=== PATIENT | female | born 1970 | race Caucasian/White ===

== ENCOUNTER 2024-06-22 11:55 | Day surgery (SDC) | payer BC, SELFPAY ==
[2024-06-20 11:14] VITALS: BMI 29.1
[2024-06-22] VITALS (9 sets, daily range): BP systolic 119–157; BP diastolic 75–94; PULSE 85–96; RESP 14–20; TEMP 36.6–36.7; O2SAT 93–98; BMI 29.9
[2024-06-22] MEDS: MIDAZOLAM INJ 1 MG/ML VIAL 2 ML (ASD USE ONLY) 2 MG IV (13:34)
[2024-06-22] MEDS: fentaNYL CIT INJ 50 mCg/ML AMP 2ML (ASD USE ONLY) IV (13:36)
--- NOTE | 2024-06-22 13:50 | SUR.PHASEII ---
PATIENT ARRIVED TO RECOVERY WITH NO ACUTE DISTRESS NEEDED, V/S STABLE, NO COMPLAINTS OF PAIN OR NAUSEA AT THIS TIME. PATIENT ACTIVELY PASSING FLATUS. REPORT RECEIVED FROM YONG CAMERON.
== END 2024-06-22 14:45 | disposition home or self-care (01) ==
PROVIDERS: PCP Family Medicine; Referring Provider Surgery; Visit Provider Surgery
PROC: 0DBE8ZX Excision of Large Intestine, Via Natural or Artificial Opening Endoscopic, Diagnostic (ICD-10-PCS; CPT 45380; principal; 2024-06-22 14:30)
DX: Z12.11 Encounter for screening for malignant neoplasm of colon (principal)
CPT/HCPCS: 45330; A4217; J2250; J3010

== ENCOUNTER 2024-06-23 13:15 | Day surgery (SDC) | payer BC, SELFPAY ==
[2024-06-23] VITALS (10 sets, daily range): BP systolic 111–181; BP diastolic 69–116; PULSE 75–93; RESP 13–20; TEMP 36.6; O2SAT 93–96; BMI 30.1
[2024-06-23] MEDS: fentaNYL CIT INJ 50 mCg/ML AMP 2ML (ASD USE ONLY) IV (15:17)
[2024-06-23] MEDS: DiphenhydrAMINE INJ 50 MG/ML VIAL 25 MG IV (15:22)
[2024-06-23] MEDS: MIDAZOLAM INJ 1 MG/ML VIAL 2 ML (ASD USE ONLY) 2 MG IV (15:24)
--- NOTE | 2024-06-23 15:37 | SUR.PHASEII ---
PATIENT INTO RECOVERY WITH NO ACUTE DISTRESS NEEDED, V/S STABLE, NO COMPLAINTS OF PAIN OR NAUSEA AT THIS TIME. PATIENT ACTIVELY PASSING FLATUS.
== END 2024-06-23 16:20 | disposition home or self-care (01) ==
PROVIDERS: PCP Family Medicine; Referring Provider Surgery; Visit Provider Surgery
PROC: 0DBE8ZX Excision of Large Intestine, Via Natural or Artificial Opening Endoscopic, Diagnostic (ICD-10-PCS; CPT 45380; principal; 2024-06-23 15:00)
DX: Z12.11 Encounter for screening for malignant neoplasm of colon (principal)
CPT/HCPCS: 45378; A4217; J1200; J2250; J3010

== ENCOUNTER → 2024-08-16 | Outpatient (CLI) | payer BC, SELFPAY ==
[2024-08-16 08:33] LABS: Basophils # (Auto) 0.1 Thou/mm3 (0.0-0.2); Basophils % (Auto) 1 % (0-2.5); Eosinophils # (Auto) 0.1 Thou/mm3 (0.0-0.5); Eosinophils % (Auto) 2 % (0-10); Glucose Estimated Average 137 mg/dL (80-131); Hematocrit 41.3 % (36.0-46.0); Hemoglobin 14.7 g/dL (12.0-16.0); Hemoglobin A1C 6.4 % Hgb (4.8-6.0); Immature Granulocytes % (Auto) 0 % (0-0); Immature Granulocytes Auto 0.01 Thou/mm3 (0.00-0.00); Lymphocytes # (Auto) 3.2 Thou/mm3 (1.0-4.8); Lymphocytes % (Auto) 47 % (10-50); Mean Corpuscular HGB Conc 35.6 g/dl (31.0-37.0); Mean Corpuscular Hemoglobin 30.4 pg (25.0-35.0); Mean Corpuscular Volume 85 fL (80-100); Monocytes # (Auto) 0.4 Thou/mm3 (0.0-0.8); Monocytes % (Auto) 5 % (0-12); Neutrophils % (Auto) 45 % (37-80); Nucleated Red Blood Cell % 0 /100 WBC (0); Platelet Count 232 Thou/mm3 (140-440); Red Blood Count 4.84 Miln/mm3 (4.00-5.20); White Blood Count 6.8 Thou/mm3 (3.6-11.0)
[2024-08-16 08:56] LABS: Alanine Aminotransferase 17 U/L (10-49); Albumin, Serum 4.4 gm/dL (3.5-5.0); Albumin/Globulin Ratio 1.6 (1.2-2.2); Anion Gap 8 (7-16); Aspartate Amino Transferase < 8 U/L (0-34); BUN/Creatinine Ratio 31 Ratio (12-20); Bilirubin,Total 0.5 mg/dL (0.3-1.2); Blood Urea Nitrogen 22 mg/dL (9-23); Calcium 9.8 mg/dL (8.3-10.6); Calcium (Corrected) 9.8 mg/dL (8.5-10.1); Carbon Dioxide 26.2 mMol/L (20.0-31.0); Cardiac Risk Estimate 4.6 RATIO (3.7-5.6); Chloride 105 mMol/L (98-107); Cholesterol 206 mg/dL (132-200); Creatinine (Component) 0.7 mg/dL (0.6-1.3); Globulin 2.7 gm/dL (2.3-3.5); Glucose 153 mg/dL (74-106); HDL Cholesterol 45 mg/dL (40-60); LDL Cholesterol,Calculated 135 mg/dL (0-130); Osmolality,Calculated 283 (275-295); Potassium 4.6 mMol/L (3.4-5.1); Sodium 139 mMol/L (136-145); Total Protein 7.1 gm/dL (5.7-8.2); Triglycerides 129 mg/dL (30-150); eGFR > 60 See Note
[2024-08-16 09:15] LABS: Alkaline Phosphatase 75 U/L (46-116)
== END | disposition home or self-care (01) ==
LOC: COPL 07:37
PROVIDERS: PCP Family Medicine; Referring Provider Family Medicine; Visit Provider Family Medicine
DX: E11.65 Type 2 diabetes mellitus with hyperglycemia (principal); E11.42 Type 2 diabetes mellitus with diabetic polyneuropathy; G90.09 Other idiopathic peripheral autonomic neuropathy; R79.9 Abnormal finding of blood chemistry, unspecified; R25.2 Cramp and spasm
CPT/HCPCS: 36415; 80053; 80061; 83036; 85025

== ENCOUNTER 2025-02-20 11:46 | Inpatient (IN) | payer BC, SELFPAY ==
[2025-02-20] VITALS (12 sets, daily range): BP systolic 98–158; BP diastolic 32–76; PULSE 102–140; RESP 14–18; TEMP 36.9–40.2; O2SAT 94–99; BMI 31.5
--- NOTE | 2025-02-20 12:31 | XR_ITS ---
Examination: PA lateral chest 2 views TECHNIQUE: Upright PA lateral chest 2 views Date and time: February 20, 2025 1317 hours INDICATIONS: History Covid infections coughing fever 5 days. FINDINGS: Normal heart size. Lungs are clear. The osseous structures are intact IMPRESSION: No active disease
--- NOTE | 2025-02-20 12:32 | PD.EDFEVER ---
ED Fever RME/HPI General Chief Complaint: Fever Stated Complaint: CHILLS, FEVER, N/V X 5 DAYS Time Seen by Provider: 02/20/25 12:26 Source: patient Arrival date/time: 02/20/25 11:46 54-year-old female with no known medical history presents to the emergency room with a chief complaint of fever, nausea, vomiting, body aches x 5 days Mode of arrival: ambulatory Limitations: no limitations Related Data Home Medications ?Medication ?Instructions ?Recorded ?Confirmed semaglutide 2 mg/dose (8 mg/3 mL) 2 mg subcut QWEEK 06/20/24 06/23/24 subcutaneous pen injector (Ozempic) Allergies Allergy/AdvReac Type Severity Reaction Status Date / Time bacitracin Allergy Intermediate Rash Verified 02/20/25 11:50 neomycin Allergy Intermediate Rash Verified 02/20/25 11:50 polymyxin B Allergy Intermediate Rash Verified 02/20/25 11:50 Physical Exam General Limitations: no limitations ED Exam General Limitations: Present no limitations Course Orders Category Date Time Status Bedside COVID-19 Antigen Test NOW Care 02/20/25 12:31 Active Bedside Influenza A&B Antigen Test NOW Care 02/20/25 12:31 Active XR chest 2V Stat Exams 02/20/25 12:31 Ordered Acetaminophen Tab [Tylenol Tab] Med 02/20/25 12:31 Once 650 mg PO X1 ONE Ondansetron Odt [Zofran Odt] Med 02/20/25 12:31 Once 4 mg PO X1 ONE Discharge Plan Prescriptions/Referrals Prescriptions/Med Rec: No Action Ozempic 2 mg/dose (8 mg/3 mL) pen injector 2 mg SUBCUT QWEEK Patient Comments: INJECT 2 MG SUBCUTANEOUSLY EVERY WEEK SUBCUTANEOUS WEEKLY 90 DAYS Patient/Caregiver Discharge Instructions Print Language: American
[2025-02-20] MEDS: ACETAMINOPHEN 325 MG TABLET 650 MG PO ×2 (12:38→19:02)
[2025-02-20] MEDS: ONDANSETRON ODT 4 MG TABRAP PO (12:38)
--- NOTE | 2025-02-20 14:58 | EKG_ITS ---
[facility] Test Date: 2025-02-20 Pat Name: ERIKA CLEARY Department: Room: - Gender: Female Photograph Retoucher: : 1970 Requested By: Lit Pichardo Order Number: [id number] Reading MD: Lit Pichardo Measurements Intervals [place] Rate: 105 P: 42 NV: 165 QRS: -7 QRSD: 100 T: 57 QT: 292 QTc: 386 Interpretive Statements SINUS TACHYCARDIA NONSPECIFIC ST & T-WAVE ABNORMALITY ABNORMAL RHYTHM ECG Compared to ECG 11/16/2019 07:51:11 T-wave abnormality now present Sinus rhythm no longer present /store/S0/[id number].pdf
--- NOTE | 2025-02-20 14:59 | PD.EDRME ---
Rapid Medical Screening Exam RME Arrival date/time: 02/20/25 11:46 54-year-old female with no known medical history presents to the emergency room with a chief complaint of fever, nausea, vomiting, body aches x 5 days I have greeted and performed a focused initial assessment of this patient. A comprehensive ED assessment and evaluation of the patient, analysis of all test results, and completion of the medical decision making process will be conducted by additional ED providers. Chief Complaint: Fever Time Seen by Provider: 02/20/25 12:26 Vital signs: Vital Signs Temperature 102.2 F H 02/20/25 12:33 Pulse Rate 110 H 02/20/25 12:33 Respiratory Rate 18 02/20/25 12:33 Blood Pressure 116/76 02/20/25 12:33 Pulse Oximetry (%) 98 02/20/25 12:33 Oxygen Delivery Method Room Air 02/20/25 12:33 Vital signs reviewed by provider: Yes
[2025-02-20 15:44] LABS: Lactate (Lactic Acid) 1.6 mMol/L (0.4-2.0)
[2025-02-20 15:46] LABS: Basophils # (Auto) 0.1 Thou/mm3 (0.0-0.2); Basophils % (Auto) 1 % (0-2.5); Eosinophils # (Auto) 0.1 Thou/mm3 (0.0-0.5); Eosinophils % (Auto) 1 % (0-10); Hematocrit 37.4 % (36.0-46.0); Hemoglobin 13.1 g/dL (12.0-16.0); Immature Granulocytes Auto 0.04 Thou/mm3 (0.00-0.00); Lymphocytes # (Auto) 1.4 Thou/mm3 (1.0-4.8); Lymphocytes % (Auto) 13 % (10-50); Mean Corpuscular HGB Conc 35.0 g/dl (31.0-37.0); Mean Corpuscular Hemoglobin 30.3 pg (25.0-35.0); Mean Corpuscular Volume 87 fL (80-100); Monocytes # (Auto) 0.9 Thou/mm3 (0.0-0.8); Monocytes % (Auto) 9 % (0-12); Neutrophils # (Auto) 7.8 Thou/mm3 (1.8-7.7); Neutrophils % (Auto) 76 % (37-80); Nucleated Red Blood Cell # 0.00 Thou/mm3 (0.00-0.00); Nucleated Red Blood Cell % 0 /100 WBC (0); Platelet Count 159 Thou/mm3 (140-440); RDW Standard Deviation 37.4 fL (36.4-46.3); Red Blood Count 4.32 Miln/mm3 (4.00-5.20); White Blood Count 10.3 Thou/mm3 (3.6-11.0)
--- NOTE | 2025-02-20 16:01 | PD.EDFEVER ---
ED Fever RME/HPI General Chief Complaint: Fever Stated Complaint: CHILLS, FEVER, N/V X 5 DAYS Time Seen by Provider: 02/20/25 12:26 Arrival date/time: 02/20/25 11:46 RME / HPI RME / HPI Narrative: 02/20/25 11:46 54-year-old female with no known medical history presents to the emergency room with a chief complaint of fever, nausea, vomiting, body aches x 5 days I have greeted and performed a focused initial assessment of this patient. A comprehensive ED assessment and evaluation of the patient, analysis of all test results, and completion of the medical decision making process will be conducted by additional ED providers. DR. RIVAS MAIN ED EVALUATION 54 year old female with history of diabetes presents to the ED for evaluation of malaise beginning 4 days ago. Reports symptoms include fevers (Tmax 104F), chills, body aches, headache, nausea, and heart burn sensation. Reports taking Motrin and both DayQuil/NyQuil with minimal relief. States she took an at-home covid test which was negative. Denies any diarrhea, abdominal pain, or dysuria. Though does report her urine is slightly darker than normal. Related Data Home Medications ?Medication ?Instructions ?Recorded ?Confirmed semaglutide 2 mg/dose (8 mg/3 mL) 2 mg subcut QWEEK 06/20/24 06/23/24 subcutaneous pen injector (Ozempic) Previous Rx's ?Medication ?Instructions ?Recorded acetaminophen 325 mg capsule 650 mg (2 x 325 mg) PO QID PRN 02/20/25 fever or pain 7 days #30 caps albuterol sulfate 90 mcg/actuation 2 puff inhalation Q6H PRN 02/20/25 aerosol inhaler (Ventolin HFA) shortness of breath or wheezing #6.7 grams ondansetron 4 mg disintegrating 4 mg PO Q8H PRN nausea and 02/20/25 tablet vomiting #14 tabs Allergies Allergy/AdvReac Type Severity Reaction Status Date / Time bacitracin Allergy Intermediate Rash Verified 02/20/25 11:50 neomycin Allergy Intermediate Rash Verified 02/20/25 11:50 polymyxin B Allergy Intermediate Rash Verified 02/20/25 11:50 Review of Systems Review of Systems Systems Reviewed: All systems reviewed, normal except as documented Past Medical History Past Medical History GASTROINTESTINAL: Positive Gastrointestinal Disorders and Gall Bladder Disease (resolved) REPRODUCTIVE: Positive Previous Pregnancies ENDOCRINE: Positive Endocrine Disorders and Diabetes Mellitus Type 2 OTHER HISTORY: Positive Chicken Pox Family History FAMILY HISTORY: Positive Family Cardiac Disorders (BROTHER (CVA?)), Family Cancer and Family Surgery Surgical History SURGICAL: Positive Open Reduction Internal Fixation, Tubal Ligation and Section (x2); Negative Cardiac Surgery or Pacemaker Social History SMOKING STATUS: Never smoker Physical Exam Narrative Physical exam: GENERAL APPEARANCE: alert and oriented x 4, well-developed, well-nourished, no acute distress HEENT: Normocephalic, atraumatic; pupils equal, round, reactive to light; EOMI; mucous membranes pink, moist; oropharynx clear NECK: Supple LUNGS: CTABL; no wheezes, no rales, no rhonchi HEART: Regular rate, regular rhythm; normal S1, S2; no murmurs ABDOMEN: non distended; normal BS; soft, no tenderness, no guarding, no rebound; no masses, no organomegaly, no hernia BACK: no CVA tenderness EXTREMITIES: atraumatic; no edema NEUROLOGIC: awake; alert and oriented x4; cranial nerves II-XII grossly intact; no focal sensory or motor deficits PSYCHIATRIC: appropriate mood and affect SKIN: warm, dry, normal color; no rashes Course Quality Measures none Orders Category Date Time Status Bedside COVID-19 Antigen Test NOW Care 02/20/25 12:31 Active Bedside Influenza A&B Antigen Test NOW Care 02/20/25 12:31 Completed EKG (ED ONLY) *Do not use* NOW Care 02/20/25 14:59 Completed EKG (ED Only) Stat Exams 02/20/25 14:58 Draft XR chest 2V Stat Exams 02/20/25 12:31 Completed B-Type Natriuretic Peptide Stat Lab 02/20/25 15:32 Completed Blood Culture (Lab) Stat Lab 02/20/25 15:27 Received CBC Stat Lab 02/20/25 15:32 Completed CMP [Comprehensive Metabolic Panel] Stat Lab 02/20/25 15:32 Completed Drug Screen,Urine Stat Lab 02/20/25 16:04 Completed Lactate (Lactic Acid) Stat Lab 02/20/25 15:32 Completed Magnesium Stat Lab 02/20/25 15:32 Completed Partial Thromboplastin Time Stat Lab 02/20/25 15:32 Completed Procalcitonin Stat Lab 02/20/25 15:32 Completed Prothrombin Time with INR Stat Lab 02/20/25 15:32 Completed Troponin I Stat Lab 02/20/25 15:32 Completed Urinalysis, C/S if Indicated Stat Lab 02/20/25 16:04 Completed Urine Culture Stat Lab 02/20/25 16:04 Received Acetaminophen Tab [Tylenol Tab] Med 02/20/25 12:31 Discontinued 650 mg PO X1 ONE Ondansetron Odt [Zofran Odt] Med 02/20/25 12:31 Discontinued 4 mg PO X1 ONE Sodium Chloride 0.9% 1000 ml [Ns] 1,000 ml Med 02/20/25 16:50 Discontinued IV 999 mls/hr Sodium Chloride 0.9% 1000 ml [Ns] 1,000 ml Med 02/20/25 17:10 Active IV 999 mls/hr cefTRIAXone/D5w 1gm IV premix [Rocephin/D5w 1gm IV Med 02/20/25 16:49 Discontinued premix] 1 gm in 50 ml IV X1 mg Hyd/Al Hyd/Edgardo Susp [Maalox Susp] Med 02/20/25 16:22 Discontinued 30 ml PO X1 ONE Vital Signs Vital signs: Vital Signs Temperature 102.2 F H 02/20/25 12:33 Pulse Rate 110 H 02/20/25 12:33 Respiratory Rate 18 02/20/25 12:33 Blood Pressure 116/76 02/20/25 12:33 Pulse Oximetry (%) 98 02/20/25 12:33 Oxygen Delivery Method Room Air 02/20/25 12:33 Pulse ox is 98% on room air which is adequate. Fever MDM Narrative MDM Narrative:: Kianna Dexter am scribing for and in the presence of Dr. Rivas. We reviewed all the results, analysis, and treatment plans. Patient has a UTI and there are no previous urine culture results. 1800: Patient signed out to Dr. Spivey pending IV fluids, medications, and final disposition. Patient data External records reviewed:: [facility] previous records (I reviewed H&P on 06/23/2024 ) Clinical information provided by:: patient Social determinants that could affect healthcare access:: none Patient has the following chronic illnesses:: DM How is presenting disease/condition affected by chronic disease/condition?: uneffected by Evaluation data The following diagnostics were reviewed and interpreted by me:: lab results, radiology exam(s) and EKG tracing(s) (02/20/2025 @ 16:00. Sinus tachycardia, rate 105, no acute ischemic changes. ) Lab and/or radiology exams considered but not ordered:: None Interpretation Summary: Ordering Physician: Lit Tom Date of Service: 02/20/25 Procedure(s): XR chest 2V Accession Number(s): [id number] cc: Lit Tom; David Noel MD; Leticia Logan MD~ Examination: PA lateral chest 2 views TECHNIQUE: Upright PA lateral chest 2 views Date and time: February 20, 2025 1317 hours INDICATIONS: History Covid infections coughing fever 5 days. FINDINGS: Normal heart size. Lungs are clear. The osseous structures are intact IMPRESSION: No active disease Dictated By: David Noel MD Signed By: <Electronically signed by David Noel MD in OV> 02/20/25 1327 Medications / Prescriptions Medications or Prescriptions considered but not ordered:: none Medication administrations:: Medication Administration History Sodium Chloride (Ns) 1,000 mls @ 999 mls/hr IV .Q1H1M ONE Stop: 02/20/25 18:10 Last Admin: 02/20/25 17:41 Dose: 999 mls/hr Documented By: HUMZA Discontinued Medications Acetaminophen (Acetaminophen 325 Mg Tablet) 650 mg PO X1 ONE Stop: 02/20/25 12:32 Last Admin: 02/20/25 12:38 Dose: 650 mg Documented By: OA Al Hydrox/Mg Hydrox/Simethicone (Mg Hyd/Al Hyd/Edgardo (Maalox Reg) Susp 30 Ml Udc) 30 ml PO X1 ONE Stop: 02/20/25 16:23 Last Admin: 02/20/25 16:31 Dose: 30 ml Documented By: HUMZA Ceftriaxone Sodium/Dextrose (Rocephin/D5w 1gm Iv Premix) 1 gm in 50 mls @ 100 mls/hr IV X1 ONE Stop: 02/20/25 17:18 Last Admin: 02/20/25 17:47 Dose: 100 mls/hr Documented By: HUMZA Sodium Chloride (Ns) 1,000 mls @ 999 mls/hr IV .Q1H1M ONE Stop: 02/20/25 17:50 Last Admin: 02/20/25 17:39 Dose: 999 mls/hr Documented By: HUMZA Ondansetron HCl (Ondansetron Odt 4 Mg Tabrap) 4 mg PO X1 ONE; Protocol Stop: 02/20/25 12:32 Last Admin: 02/20/25 12:38 Dose: 4 mg Documented By: OA See above Consultations Consultation(s) initiated? (list below): No Diagnosis Fever Differential Diagnosis: fever of unknown origin, community acquired pneumonia, pyelonephritis, viral infection, sepsis and influenza Most likely diagnosis given after review of the tests above:: UTI Admission Indicated Admission indicated?: not indicated Explain why admission is indicated or not indicated:: Signed out pending final disposition. Admission Request Was there a request for admission?: No Disposition Plan Disposition Plan: other (specify) (signed out to Dr. Spivey ) Discharge Plan Plan Discharge Disposition comment: Stable Prescriptions/Referrals Prescriptions/Med Rec: New albuterol sulfate [Ventolin HFA] 90 mcg/actuation HFA aerosol inhaler 2 puff inhalation Q6H PRN (Reason: shortness of breath or wheezing) Qty: 6.7 0RF acetaminophen 325 mg capsule 650 mg PO QID PRN (Reason: fever or pain) 7 Days Qty: 30 0RF ondansetron 4 mg tablet,disintegrating 4 mg PO Q8H PRN (Reason: nausea and vomiting) Qty: 14 0RF No Action Ozempic 2 mg/dose (8 mg/3 mL) pen injector 2 mg SUBCUT QWEEK Patient Comments: INJECT 2 MG SUBCUTANEOUSLY EVERY WEEK SUBCUTANEOUS WEEKLY 90 DAYS Referrals: Leticia Logan MD [Primary Care Provider] - In 1 week Problem List Clinical Impression: UTI (urinary tract infection), Fever, Acute kidney injury Patient/Caregiver Discharge Instructions Additional Instructions: Please follow-up with your primary care provider in the next 24 to 48 hours. You tested negative for influenza COVID-19 and community-acquired pneumonia. The treatment for this is symptom management. Please continue to take Tylenol and ibuprofen for fever management. Please increase your oral fluid intake. For any evidence of worsening signs or symptoms please return to the emergency room immediately Print Language: [place] Islander RAY/BIJU Supervising Physician PA/BIJU Supervising Physician: Dr. RIVAS
[2025-02-20 16:06] LABS: B-Type Natriuretic Peptide < 20 pg/mL (0-100)
[2025-02-20 16:11] LABS: INR 1.2 (0.9-1.3); Partial Thromboplastin Time 31.2 Seconds (22.0-36.0); Prothrombin Time 12.6 Seconds (9.0-12.2)
[2025-02-20 16:13] LABS: Collection Type, Urine Clean Catch
[2025-02-20 16:15] LABS: Alanine Aminotransferase 42 U/L (10-49); Albumin, Serum 3.8 gm/dL (3.5-5.0); Albumin/Globulin Ratio 1.3 (1.2-2.2); Alkaline Phosphatase 115 U/L (46-116); Anion Gap 11 (7-16); Aspartate Amino Transferase 23 U/L (0-34); BUN/Creatinine Ratio 10 Ratio (12-20); Bilirubin,Total 1.2 mg/dL (0.3-1.2); Blood Urea Nitrogen 14 mg/dL (9-23); Calcium 9.7 mg/dL (8.3-10.6); Calcium (Corrected) 9.9 mg/dL (8.5-10.1); Carbon Dioxide 23.8 mMol/L (20.0-31.0); Chloride 101 mMol/L (98-107); Creatinine (Component) 1.4 mg/dL (0.6-1.3); Globulin 2.9 gm/dL (2.3-3.5); Glucose 277 mg/dL (74-106); Magnesium 1.6 mg/dL (1.6-2.6); Osmolality,Calculated 282 (275-295); Potassium 3.4 mMol/L (3.4-5.1); Procalcitonin 1.71 ng/ml (0.0-0.49); Sodium 136 mMol/L (136-145); Total Protein 6.7 gm/dL (5.7-8.2); Troponin I < 0.002 ng/mL (0.0-0.045); eGFR 44 See Note
[2025-02-20 16:22] LABS: Amphetamine/Methamp Scrn,U Negative (Negative); Barbiturate Screen,Urine Negative (Negative); Benzodiazepines Screen,Urine Negative (Negative); Benzoylecgonine Screen, Ur Negative (Negative); Fentanyl Screen,Urine Negative (Negative); Opiate Screen,Urine Negative (Negative); THC Screen,Urine Negative (Negative)
[2025-02-20 16:31] LABS: Bacteria,Urine 1+; Bilirubin,Urine Negative (Negative); Blood,Urine 1+ (Negative); Color,Urine Yellow (Lt Yel-Yel); Glucose, Urine Negative (Negative); Ketones,Urine 1+ (Negative); Leukocyte Esterase,Urine Positive (Negative); Nitrite,Urine Negative (Negative); PH,Urine 6.0 (5.0-7.0); Protein,Urine 2+ (Neg - Trace); RBC,Urine 4 /hpf (0-3); Specific Gravity,Urine 1.021 (1.001-1.035); Squamous Epithelial Cell,Urine 1 /hpf (0-5); Urobilinogen,Urine Negative mg/dL (0.0-1.0); WBC,Urine 67 /hpf (0-5)
[2025-02-20] MEDS: MG HYD/AL HYD/SIME (Maalox Reg) SUSP 30 ML UDC PO (16:31)
[2025-02-20 16:34] LABS: Clarity,Urine Hazy (Clear/Hazy); Culture Indicated,Urine Yes
[2025-02-20] MEDS: SODIUM CHLORIDE 0.9% 1000 ML 1,000 ML 999 ML IV ×2 (17:39→17:41)
[2025-02-20] MEDS: cefTRIAXone/D5w 1gm IV premix 1 GM/50 ML BAG IV (17:47)
--- NOTE | 2025-02-20 18:23 | PD.EDADDENDU ---
Emergency Room Addendum <Izzy Luz - Last Filed: 02/21/25 00:55> Addendum Narrative: I took over the care from Dr. Rivas at 6 PM on 02/20/2025, see her notes for complete H&P and ED course. I reviewed all diagnostic test results. At this point, diagnoses include: 1. UTI 2. ABDIAZIZ Treatment from [place] included: 1. Toradol 2. Tylenol 3. IV fluid 4. Zofran I discussed the case with our hospitalist. About the presentation and exam and diagnostics and treatments here. And need of further care in the hospital. Will accept the patient. Naseem Spivey MD <Naseem Spivey MD - Last Filed: 02/21/25 01:23> Addendum Narrative: I took over the care from Dr. Rivas at 6 PM on 02/20/2025, see her notes for complete H&P and ED course. I reviewed all diagnostic test results. At this point, diagnoses include: Sepsis UTI ABDIAZIZ Hypokalemia Treatment from [place] included: IV fluid and Zofran Rocephin Tylenol and Toradol Oral KCl 40 mEq No significant improvement noted. I discussed the case with our hospitalist. About the presentation and exam and diagnostics and treatments here. And need of further care in the hospital. Will accept the patient. Naseem Spivey MD
[2025-02-20] MEDS: POTASSIUM CHLORIDE 10% 20 MEQ/15 ML UDC 40 MEQ PO (19:04)
[2025-02-20] MEDS: KETOROLAC INJ 30 MG/ML VIAL IVP (19:05)
[2025-02-20] MEDS: ONDANSETRON INJ 2 MG/ML INJ 2 ML 4 MG IVP (19:11)
[2025-02-20] MEDS: RINGERS LACTATED 1000 ML 1,000 ML IV (19:31)
[2025-02-20] MEDS: ACETAMINOPHEN IVPB 1,000 MG/100 ML VIAL 250 MG IV (19:33)
[2025-02-20] MEDS: IBUPROFEN TAB 400 MG TABLET 800 MG PO (21:20)
[2025-02-20] MEDS: RINGERS LACTATED 1000 ML 1,000 ML 999 ML IV (21:21)
--- NOTE | 2025-02-20 21:32 | PD.RESHP ---
Documentation for date of: 02/20/25 HPI History of Present Illness Chief complaint: fever, chills, N/V History of present illness: Ms Raymond is a 54 year old patient past medical history of type 2 diabetes mellitus and HLD presented to the ED on 02/20/2025 with chief complaint of fever, chills, nausea, vomiting and bodyaches for the past 5 days. Patient reports these symptoms started on Wednesday. Took Motrin, DayQuil and NyQuil but minimal relief of symptoms. She was also concerned for possible COVID hence she took a COVID test but was negative. Associated symptoms are intermittent headache, back pain. She denies chest pain, palpitation, abdominal pain, vision changes and dysuria. Though does report urine color is darker than her baseline. ED Course: -Initial vitals were BP 116/76, RR 18, pulse 110, temp 102.2, O2 sat 98% on room air -Labs significant for PT 12.6, CR 1.4, eGFR 44, glucose 277, Pro-Luis Alberto 1.71 -Imaging included chest x-ray showed no acute disease. EKG showed sinus tachycardia with QTc of 386 -In the ED, patient was given Zofran, Tylenol, 2 L NS, ceftriaxone, KCl, ketorolac -Patient was admitted for UTI and ABDIAZIZ management Review of Systems Review of systems otherwise negative except what is mentioned above. Past Medical History: Family History: Mom- [place] 2 years ago, Dad- kidney failure? Surgical History: Positive Open Reduction Internal Fixation, Tubal Ligation and Section (x2) Social History: Denies history of smoking, denies current alcohol use, denies recreational drug use Current Medications: (Source: ) Allergies: bacitracin, neomycin, polymyxin B Exam Vital Signs Temp Pulse Resp BP Pulse Ox O2 Del Method 103.7 F H 118 H 16 113/70 95 Room Air 02/20/25 21:20 02/20/25 21:07 02/20/25 21:07 02/20/25 21:07 02/20/25 21:07 02/20/25 21:07 Narrative Exam General: Alert, no acute distress.Conversational and non-toxic appearing. Skin: Warm, dry, intact. No rash or ecchymoses. Head: Normocephalic, atraumatic. Eye: Normal conjunctiva, PERRL. Throat: Oral mucosa moist. No obvious lesions in oropharynx. Cardiovascular: Regular rate and rhythm, no murmur, +S1/S2. Respiratory: Lungs are clear to auscultation, respirations unlabored, no crackles, no wheezing. Gastrointestinal: Soft, nontender, non-distended. No guarding or rebound tenderness. Positive right sided CVA tenderness Extremities: No edema, no cyanosis, no clubbing. Neuro: Alert and oriented x3.No focal deficits observed. Conversant, moving all extremities. No overt cerebellar signs/incoordination. Psychiatric: Cooperative, appropriate affect Results: Labs 02/22/25 04:55 02/22/25 04:55 Labs: Short CBC 02/20/25 Range/Units 15:32 WBC 10.3 (3.6-11.0) Thou/mm3 Hgb 13.1 (12.0-16.0) g/dL Hct 37.4 (36.0-46.0) % Plt Count 159 (140-440) Thou/mm3 BMP 02/20/25 15:32 Sodium 136 Potassium 3.4 Chloride 101 Carbon Dioxide 23.8 BUN 14 Creatinine 1.4 H Glucose 277 H Calcium 9.7 Cardiac Enzymes 02/20/25 Range/Units 15:32 Troponin I < 0.002 (0.0-0.045) ng/mL Liver Function 02/20/25 Range/Units 15:32 Total Bilirubin 1.2 (0.3-1.2) mg/dL AST 23 (0-34) U/L ALT 42 (10-49) U/L Alkaline Phosphatase 115 (46-116) U/L Albumin 3.8 (3.5-5.0) gm/dL Urine 02/20/25 Range/Units 16:04 Urine Color Yellow (Lt Yel-Yel) Urine Clarity Hazy (Clear/Hazy) Urine pH 6.0 (5.0-7.0) Ur Specific [place] 1.021 (1.001-1.035) Urine Protein 2+ A (Neg - Trace) Urine Glucose (UA) Negative (Negative) Quality Measures Quality Measures none Medications Home Medications and Allergies Home Medications ?Medication ?Instructions ?Recorded ?Confirmed ?Type semaglutide 2 mg/dose (8 mg/3 mL) 2 mg subcut QWEEK 06/20/24 02/20/25 History subcutaneous pen injector (Ozempic) Allergies Allergy/AdvReac Type Severity Reaction Status Date / Time bacitracin Allergy Intermediate Rash Verified 02/20/25 11:50 neomycin Allergy Intermediate Rash Verified 02/20/25 11:50 polymyxin B Allergy Intermediate Rash Verified 02/20/25 11:50 Visit Medications Acetaminophen (Acetaminophen 325 Mg Tablet) 650 mg PO Q6H PRN PRN Reason: Fever >101.5 Stop: 03/22/25 19:44 Acetaminophen (Acetaminophen 325 Mg Tablet) 650 mg PO Q6H PRN PRN Reason: PAIN SCALE 1-3 (mild Stop: 03/22/25 19:44 Cefepime HCl 1 gm/ Sodium (Chloride) 50 mls @ 100 mls/hr IV Q8HR CALVIN Stop: 02/27/25 20:59 Lactated Ringer's (Lactated Ringers) 1,000 mls @ 999 mls/hr IV .Q1H1M ONE Stop: 02/20/25 22:11 Last Admin: 02/20/25 21:21 Dose: 999 mls/hr Ondansetron HCl (Ondansetron Inj 2 Mg/Ml Inj 2 Ml) 4 mg IVP Q6H PRN; Protocol PRN Reason: NAUSEA OR VOMITING Stop: 03/22/25 19:44 Discontinued Medications Acetaminophen (Acetaminophen 325 Mg Tablet) 650 mg PO X1 ONE Stop: 02/20/25 12:32 Last Admin: 02/20/25 12:38 Dose: 650 mg Acetaminophen (Acetaminophen 325 Mg Tablet) 650 mg PO X1 ONE Stop: 02/20/25 18:24 Last Admin: 02/20/25 19:02 Dose: 650 mg Al Hydrox/Mg Hydrox/Simethicone (Mg Hyd/Al Hyd/Edgardo (Maalox Reg) Susp 30 Ml Udc) 30 ml PO X1 ONE Stop: 02/20/25 16:23 Last Admin: 02/20/25 16:31 Dose: 30 ml Ceftriaxone Sodium/Dextrose (Rocephin/D5w 1gm Iv Premix) 1 gm in 50 mls @ 100 mls/hr IV X1 ONE Stop: 02/20/25 17:18 Last Infusion: 02/20/25 18:17 Dose: Infused Sodium Chloride (Ns) 1,000 mls @ 999 mls/hr IV .Q1H1M ONE Stop: 02/20/25 17:50 Last Infusion: 02/20/25 18:40 Dose: Infused Sodium Chloride (Ns) 1,000 mls @ 999 mls/hr IV .Q1H1M ONE Stop: 02/20/25 18:10 Last Infusion: 02/20/25 18:42 Dose: Infused Acetaminophen (Ofirmev Inj) 1,000 mg in 100 mls @ 250 mls/hr IV X1 ONE Stop: 02/20/25 19:43 Last Infusion: 02/20/25 19:57 Dose: Infused Lactated Ringer's (Lactated Ringers) 1,000 mls @ 1,000 mls/hr IV .Q1H ONE Stop: 02/20/25 20:20 Last Infusion: 02/20/25 20:38 Dose: Infused Cefepime HCl 1 gm/ Sodium (Chloride) 50 mls @ 100 mls/hr IV X1 ONE Stop: 02/20/25 21:44 Ibuprofen (Ibuprofen Tab 400 Mg Tablet) 800 mg PO X1 ONE Stop: 02/20/25 21:12 Last Admin: 02/20/25 21:20 Dose: 800 mg Ketorolac Tromethamine (Ketorolac Inj 30 Mg/Ml Vial) 30 mg IVP X1 ONE Stop: 02/20/25 18:24 Last Admin: 02/20/25 19:05 Dose: 30 mg Ondansetron HCl (Ondansetron Odt 4 Mg Tabrap) 4 mg PO X1 ONE; Protocol Stop: 02/20/25 12:32 Last Admin: 02/20/25 12:38 Dose: 4 mg Ondansetron HCl (Ondansetron Inj 2 Mg/Ml Inj 2 Ml) 4 mg IVP X1 ONE; Protocol Stop: 02/20/25 19:10 Last Admin: 02/20/25 19:11 Dose: 4 mg Potassium Chloride (Potassium Chloride 10% 20 Meq/15 Ml Udc) 40 meq PO X1 ONE Stop: 02/20/25 18:37 Last Admin: 02/20/25 19:04 Dose: 40 meq Assessment & Plan Plan Ms Raymond is a 54 year old patient past medical history of type 2 diabetes mellitus and HLD presented to the ED on 02/20/2025 with chief complaint of fever, chills, nausea, vomiting and bodyaches for the past 5 days. Admitted for sepsis 2/2 UTI and ABDIAZIZ management #Sepsis likely 2/2 #Urinary tract infection #Acute pyelonephritis The patient was tachycardic and febrile temperature 102.2, with hyperglycemia and elevated procalcitonin 1.71 which indicated a systemic inflammation. Fluid intake total 4 L, further supports additional sepsis. The UA was positive for leukocyte esterase, pyuria with WBC 67 consistent of UTI. Also patient is had chills and (+)CVA tenderness suggestive of renal source of infection. lactic acid 1.6 SIRS criteria 07/25: HR110, [id number]. - IV hydration - Cefepime 1 gm - Zofran for nausea - Acetaminophen 650 mg for fever and pain - urine culture, pending - blood culture, pending - Follow-up CT abdominal/pelvis - Continue to monitor vitals #ABDIAZIZ, likely pre-renal On admission Cr 1.4 (baseline 0.6), GFR 44. Likely secondary to dehydration due to poor oral intake. -Avoid nephrotoxins -Monitor renal panel -Renally dosed medications # Non Insulin-dependent type 2 diabetes On admission glucose 277, A1c 6.4. Home medication Ozempic 2 mg. - Started insulin sliding scale - Bedside glucose check # Dyslipidemia Admission cholesterol 206, [id number], triglyceride 139. -Continue to monitor -Consider starting atorvastatin 40mg Hospital management: Lines: peripheral IV Diet: carbs consistent diet DVT prophylaxis: Heparin SC Disposition: sepsis secondary to UTI, ABDIAZIZ management CODE STATUS: Full code Patient seen and assessed under supervision of attending physician Dr.Alhalaibeh Ronit Prieto MD PGY-1, Internal Medicine Please note: this document was transcribed using voice recognition technology; minor inaccuracies may be present. Attending Provider Attestation/Addendum After examination of the patient and review of the clinical data I feel that this patient needs admission to the hospital for further treatment/evaluation. I Jose L No MD, attest that I was physically present for hendricks portions of evaluation, and examined patient, labs and imagings and plan of care were discussed with IM residents team, and I agree with the findings and plans documented above.
[2025-02-20] MEDS: CEFEPIME INJ 1 GM in SODIUM CHLORIDE 0.9% (Popper) 50 ML IV (22:33)
[2025-02-20] MEDS: HEPARIN SOD INJ 5000 UNIT/ML VIAL SC (22:41)
[2025-02-21] VITALS (10 sets, daily range): BP systolic 101–139; BP diastolic 66–88; PULSE 82–114; RESP 16–96; TEMP 36.3–37.6; O2SAT 91–96
--- NOTE | 2025-02-21 00:24 | XR_ITS ---
Examination: CT abdomen and pelvis without contrast. Coronal 3-D reconstructions. Sagittal 2-D reconstructions. Date and time of exam:February 21, 2025 0555 hrs. Indications: Urinary tract infection acute renal insufficiency and flank pain and tenderness today CTDI: vol (mGy): 9.95 DLP: (mGycm): 565. Technique: Axial images of the abdomen have been obtained, 3 mm slice thickness Intravenous contrast material has not been administered. Low dose protocols were performed. One or more of the following dose reduction techniques were used; automated exposure control, adjustment of the mA and/or KV according to patient size, use of iterative reconstruction technique. Findings: No focal liver or splenic lesions. Absent gallbladder. No pancreatic mass. Perinephric stranding. No renal or ureteral calculi. Aorta normal size. Normal appendix. No bowel obstruction. Urinary bladder intact. Moderate osteopenia. Impression: Perinephric stranding, consider nephritis, urinary tract infection, no renal or ureteral calculi, no hydronephrosis Normal appendix. No bladder mass or bladder calculi.
[2025-02-21 06:04] LABS: Basophils # (Auto) 0.0 Thou/mm3 (0.0-0.2); Basophils % (Auto) 0 % (0-2.5); Eosinophils # (Auto) 0.0 Thou/mm3 (0.0-0.5); Eosinophils % (Auto) 0 % (0-10); Hematocrit 31.4 % (36.0-46.0); Hemoglobin 11.2 g/dL (12.0-16.0); Immature Granulocytes Auto 0.18 Thou/mm3 (0.00-0.00); Lymphocytes # (Auto) 1.0 Thou/mm3 (1.0-4.8); Lymphocytes % (Auto) 15 % (10-50); Mean Corpuscular HGB Conc 35.7 g/dl (31.0-37.0); Mean Corpuscular Hemoglobin 30.9 pg (25.0-35.0); Mean Corpuscular Volume 87 fL (80-100); Monocytes # (Auto) 0.6 Thou/mm3 (0.0-0.8); Monocytes % (Auto) 10 % (0-12); Neutrophils # (Auto) 4.4 Thou/mm3 (1.8-7.7); Neutrophils % (Auto) 71 % (37-80); Nucleated Red Blood Cell # 0.00 Thou/mm3 (0.00-0.00); Nucleated Red Blood Cell % 0 /100 WBC (0); Platelet Count 129 Thou/mm3 (140-440); RDW Standard Deviation 37.7 fL (36.4-46.3); Red Blood Count 3.63 Miln/mm3 (4.00-5.20); White Blood Count 6.2 Thou/mm3 (3.6-11.0)
[2025-02-21] MEDS: CEFEPIME INJ 1 GM in SODIUM CHLORIDE 0.9% (Popper) 50 ML IV (06:05)
[2025-02-21] MEDS: HEPARIN SOD INJ 5000 UNIT/ML VIAL SC ×3 (06:10→21:04)
[2025-02-21] MEDS: IBUPROFEN TAB 200 MG TABLET PO (06:30)
[2025-02-21] MEDS: ONDANSETRON INJ 2 MG/ML INJ 2 ML 4 MG IVP ×2 (06:31→13:12)
[2025-02-21 06:35] LABS: Glucose Estimated Average 146 mg/dL (80-131); Hemoglobin A1C 6.7 % Hgb (4.8-6.0)
[2025-02-21 06:37] LABS: Alanine Aminotransferase 39 U/L (10-49); Albumin, Serum 3.2 gm/dL (3.5-5.0); Albumin/Globulin Ratio 1.3 (1.2-2.2); Alkaline Phosphatase 98 U/L (46-116); Anion Gap 11 (7-16); Aspartate Amino Transferase 28 U/L (0-34); BUN/Creatinine Ratio 13 Ratio (12-20); Bilirubin,Total 0.8 mg/dL (0.3-1.2); Blood Urea Nitrogen 12 mg/dL (9-23); Calcium 8.5 mg/dL (8.3-10.6); Calcium (Corrected) 9.1 mg/dL (8.5-10.1); Carbon Dioxide 24.3 mMol/L (20.0-31.0); Chloride 106 mMol/L (98-107); Creatinine (Component) 0.9 mg/dL (0.6-1.3); Estimated Creatinine Clearance 76.5 mL/min (>60); Globulin 2.5 gm/dL (2.3-3.5); Glucose 215 mg/dL (74-106); Magnesium 1.6 mg/dL (1.6-2.6); Osmolality,Calculated 286 (275-295); Phosphorous 2.8 mg/dL (2.4-5.1); Potassium 3.3 mMol/L (3.4-5.1); Sodium 141 mMol/L (136-145); Total Protein 5.7 gm/dL (5.7-8.2); eGFR > 60 See Note
[2025-02-21] MEDS: INSULIN LISPRO (AdmeLOG) 1 UNIT/0.01 ML UNIT SC ×4 (07:37→21:03)
[2025-02-21] MEDS: Magnesium Sulfate 4 GM Ivpb 4 GM/50 ML BAG IV (08:20)
--- NOTE | 2025-02-21 09:31 | PC.SS ---
Patient Carine Raymond is a 54 Year old female admitted for ABDIAZIZ and UTI. SS met with patient at bedside to discuss discharge plan and verify demographic information. Patient reports she lives at home with her , Kian Raymond who she reports is her surrogate decision maker, [phone].. Choice of pharmacy is [facility]. PCP is Leticia Logan. Patient is able to complete all ADL's independently and does not utilize any source of DME. At time of discharge patient will return back home, will provide transportation. Next of kin: Kian Raymond Discharge plan: Home
[2025-02-21] MEDS: cefTRIAXone 2 GM in SODIUM CHLORIDE 0.9% (Popper) 50 ML IV (12:33)
[2025-02-21] MEDS: ACETAMINOPHEN 325 MG TABLET 650 MG PO (12:44)
--- NOTE | 2025-02-21 14:45 | ESPR_ITS ---
<Statement entered by Rachel Morelos MD - 02/21/25 14:53> Mr. Raymond is a 54-year-old female with past medical history significant for diabetes on Ozempic for 3 years, hyperlipidemia presenting to the ED with chief complaint of fevers, chills, nausea/vomiting for the last 5 days. In the ED patient's labs were significant for elevated Pro-Luis Alberto, increased creatinine of 1.4. Patient will be admitted for further management of sepsis secondary to gram-negative bacteremia and UTI. Today on presentation, patient states her symptoms are much improved. Patient no longer presents with sepsis. Patient will be on ceftriaxone 2 g daily, insulin sliding scale, carb consistent diet, and will pend cultures. Anticipate discharge within 48 to 72 hours. I discussed with and supervised the agriculture internship physician who took care of this patient. I personally saw and examined the patient and discussed the assessment and plan with the entire medicine team, including my attending Dr. Dos Santos, I agree with most of the assessment and plan as documented below Rachel Morelos M.D. PGY-3 Disclaimer: Despite multiple revisions, due to the dictation software being used, the document bellow may not be free of grammatical errors including phonetic/typographic errors. However, this does not deter from our commitment to providing health care in the patient's best interest in mind. Documentation for date of: 02/21/25 Subjective Subjective Interval history: 02/21/25: No acute events overnight. Vital signs stable. Patient is now afebrile. Patient was examined and evaluated at bedside. Patient denies any chest pain, shortness of breath, nausea, vomiting, abdominal pain or dysuria. Patient states that her urine was dark prior to arrival which improved however still noticing dark urine. Patient does not have any complaints at this time. Exam Vital Signs Temp Pulse Resp BP Pulse Ox O2 Del Method 98.4 F 103 H 18 139/81 H 96 Room Air 02/21/25 12:00 02/21/25 12:06 02/21/25 12:06 02/21/25 12:00 02/21/25 12:02/21/25 08:00 Narrative Exam General: Alert, no acute distress.Conversational and non-toxic appearing. Skin: Warm, dry, intact. No rash or ecchymoses. Head: Normocephalic, atraumatic. Eye: Normal conjunctiva, anicteric sclerae Throat: Oral mucosa moist. Cardiovascular: Regular rate and rhythm, no murmur, +S1/S2. Respiratory: Lungs are clear to auscultation, respirations unlabored, no crackles, no wheezing. Gastrointestinal: Soft, nontender, non-distended. No guarding or rebound tenderness. Positive right sided CVA tenderness Extremities: No edema, no cyanosis, no clubbing. Neuro: Alert and oriented x3.No focal deficits observed. Conversant, moving all extremities. No overt cerebellar signs/incoordination. Psychiatric: Cooperative, appropriate affect Objective Labs 02/22/25 04:55 02/22/25 04:55 Labs: Laboratory Results - last 24 hr 02/20/25 02/20/25 02/21/25 15:32 16:04 05:19 WBC 10.3 6.2 RBC 4.32 3.63 L Hgb 13.1 11.2 L Hct 37.4 31.4 L MCV 87 87 MCH 30.3 30.9 MCHC 35.0 35.7 RDW Std Deviation 37.4 37.7 Plt Count 159 129 L D Neut % (Auto) 76 71 Lymph % (Auto) 13 15 Dickinson % (Auto) 9 10 Eos % (Auto) 1 0 Baso % (Auto) 1 0 Neut # (Auto) 7.8 H 4.4 Lymph # (Auto) 1.4 1.0 Dickinson # (Auto) 0.9 H 0.6 Eos # (Auto) 0.1 0.0 Baso # (Auto) 0.1 0.0 Immature Gran # (Auto) 0.04 H 0.18 H Absolute Nucleated RBC 0.00 0.00 Immature Gran % 0 3 H Nucleated RBC % 0 0 PT 12.6 H INR 1.2 APTT 31.2 Sodium 136 141 Potassium 3.4 3.3 L Chloride 101 106 Carbon Dioxide 23.8 24.3 Anion Gap 11 11 BUN 14 12 Creatinine 1.4 H 0.9 D Estim Creat Clear Calc Not Performed. 76.5 eGFR 44 L > 60 BUN/Creatinine Ratio 10 L 13 Glucose [address] Glu mg/dL 146 H Hemoglobin A1c 6.7 H Calculated Osmolality 282 286 Lactic Acid 1.6 Calcium 9.7 8.5 Corrected Calcium 9.9 9.1 Phosphorus 2.8 Magnesium 1.6 1.6 Total Bilirubin 1.2 0.8 AST 23 28 ALT 42 39 Alkaline Phosphatase 115 98 Troponin I < 0.002 B-Natriuretic Peptide < 20 Total Protein 6.7 5.7 Albumin 3.8 3.2 L D Globulin 2.9 2.5 Albumin/Globulin Ratio 1.3 1.3 Procalcitonin 1.71 H Ur Collection Type Clean Catch Urine Color Yellow Urine Clarity Hazy Urine pH 6.0 Ur Specific [place] 1.021 Urine Protein 2+ A Urine Glucose (UA) Negative Urine Ketones 1+ A Urine Blood 1+ A Urine Nitrite Negative Urine Bilirubin Negative Urine Urobilinogen (Auto) Negative Ur Leukocyte Esterase Positive Urine RBC 4 H Urine WBC 67 H Ur Squamous Epith Cells 1 Urine Bacteria 1+ A Ur Culture Indicated? Yes Urine Opiates Screen Negative Urine Fentanyl Screen Negative Ur Barbiturates Screen Negative U Amphetamin/Meth Scrn Negative U Benzodiazepines Scrn Negative U Cocaine Metab Screen Negative U Marijuana (THC) Screen Negative Quality Measures Quality Measures none Assessment & Plan Assessment Current Active Medications: Generic Name Dose Route Start Last Admin Trade Name Freq PRN Reason Stop Dose Admin Acetaminophen 650 mg 02/20/25 19:45 Acetaminophen 325 Mg Tablet PO 03/22/25 19:44 Q6H PRN Fever >101.5 Acetaminophen 650 mg 02/20/25 19:45 02/21/25 12:44 Acetaminophen 325 Mg Tablet PO 03/22/25 19:44 650 mg Q6H PRN Administration PAIN SCALE 1-3 (mild Dextrose 25 ml 02/21/25 00:22 Dextrose 50%-Water Inj 50 Ml Syringe IV 03/23/25 00:21 Q15MIN PRN BG 50-70 responsive npo pt Dextrose 50 ml 02/21/25 00:22 Dextrose 50%-Water Inj 50 Ml Syringe IV 03/23/25 00:21 Q15MIN PRN BG <50 OR BG <70 & pt unresponsive Glucagon 1 mg 02/21/25 00:22 Glucagon Inj 1 Mg Vial IM Q15MIN PRN BG <70, and no IV access Heparin Sodium (Porcine) 5,000 unit 02/20/25 22:00 02/21/25 13:11 Heparin Sod Inj 5000 Unit/Ml Vial SC 03/06/25 21:59 5,000 unit Q8HR CALVIN Administration Ceftriaxone Sodium 2 gm/ 50 mls @ 100 mls/hr 02/21/25 11:04 02/21/25 12:33 Sodium Chloride IV 02/28/25 11:03 100 mls/hr QDAY CALVIN Administration Insulin Human Lispro 0 unit 02/21/25 07:30 02/21/25 12:13 Insulin Lispro (Admelog) 1 Unit/0.01 Ml Unit SC 03/23/25 07:29 3 unit ACHS CALVIN Administration Protocol Ondansetron HCl 4 mg 02/20/25 19:45 02/21/25 13:12 Ondansetron Inj 2 Mg/Ml Inj 2 Ml IVP 03/22/25 19:44 4 mg Q6H PRN Administration NAUSEA OR VOMITING Protocol Plan Ms Raymond is a 54 year old female with past medical history of type 2 diabetes mellitus (on Ozempic) and HLD presented to the ED on 02/20/2025 with chief complaint of fever, chills, nausea, vomiting and generalized malaise for the past 5 days. Admitted for sepsis 2/2 UTI and ABDIAZIZ management #Sepsis 2/2 right pyelonephritis vs (Resolved) #Urinary tract infection #Gram negative bacterimia Patient was tachycardic and febrile max T of 104.4 on admission, with hyperglycemia and elevated procalcitonin 1.71 which indicated a systemic inflammation. The UA was positive for leukocyte esterase, pyuria with WBC 67 consistent of UTI. No leukocytosis was noted. Also patient is had chills and (+)CVA tenderness suggestive of renal source of infection. lactic acid 1.6. End organ damaged evident by Abdiaziz of Cr 1.4. SIRS criteria 2/4: HR110, Temp 104.4. CT abd&pelvis shows perinephric stranding suspecting pyelonephritis on the right Blood culture positive for GNR Patient's tachycardia and fever have resolved. Plan: - Continue IVF - Start Rocephin 2g qday - Zofran for nausea - Acetaminophen 650 mg for fever and pain - Pending urine culture - Pending blood culture specification - Continue to monitor vitals #ABDIAZIZ, likely pre-renal (resolved) On admission Cr 1.4 (baseline 0.6), GFR 44. Likely secondary to dehydration due to poor oral intake. Cr improved to 0.9 Plan: - CTM -Avoid nephrotoxins -Monitor renal panel -Renally dosed medications # Non Insulin-dependent type 2 diabetes On admission glucose 277, A1c 6.4. Home medication Ozempic 2 mg. Plan: - Started insulin sliding scale - Bedside glucose check # Dyslipidemia Admission cholesterol 206, CLN102, triglyceride 139. Plan: -Continue to monitor -Consider starting atorvastatin 40mg Hospital management: Lines: peripheral IV Diet: carbs consistent diet DVT prophylaxis: Heparin SC Disposition: bacterimia, UTI, ABDIAZIZ management CODE STATUS: Full code Case was discussed with attending physician Dr. Dos Santos and senior resident Dr. Morelos. Robb Sky DO PGY-1 Attending Provider Attestation/Addendum I have examined the patient, reviewed labs and imaging findings, discussed the case with the resident(s), and reviewed entered orders. I agree with the plan of care as outlined in this note, with these additional summaries/recommendations: Patient seen at bedside. She reports significant improvement in her symptoms today. Patient was admitted overnight for sepsis secondary to pyelonephritis +/- bacteremia. CT of abdomen and pelvis shows perinephric fat stranding and CVA tenderness present. Urine and blood cultures taken and pending results. 1 of 2 blood cultures preliminarily showing GNR's and we will await speciation. Continue IV antibiotic. Continue IVF. Tylenol as needed for fever. ABDIAZIZ resolved. Mild hypokalemia and replacement given, follow-up repeat level. Continue insulin sliding scale with Accu-Cheks for diabetes mellitus type 2. Target blood sugar 140-180 while hospitalized. Patient reports she only takes Ozempic for her diabetes and has been on this medicine for 3 years. A1c 6.7%. Patient updated on the plan and in agreement. All questions answered to satisfaction. Please see residents note for additional details and management. Dr. Raya MD
--- NOTE | 2025-02-21 16:21 | PC.SS ---
SS follow up notes; Patient is pending Cultures, patient will discharge home once medically cleared.
[2025-02-21] MEDS: METOCLOPRAMIDE INJ 5 MG/ML VIAL 2 ML 10 MG IVP (17:38)
[2025-02-21] MEDS: IBUPROFEN TAB 400 MG TABLET 800 MG PO (17:39)
[2025-02-22] VITALS (8 sets, daily range): BP systolic 104–142; BP diastolic 61–89; PULSE 90–109; RESP 17–95; TEMP 36.2–36.9; O2SAT 91–96
--- NOTE | 2025-02-22 04:48 | PC.NURSE ---
[facility] downtime [phone].
[2025-02-22] MEDS: ACETAMINOPHEN 325 MG TABLET 650 MG PO ×2 (05:00→18:28)
[2025-02-22] MEDS: HEPARIN SOD INJ 5000 UNIT/ML VIAL SC ×3 (05:25→21:27)
[2025-02-22 05:53] LABS: Basophils # (Auto) 0.0 Thou/mm3 (0.0-0.2); Basophils % (Auto) 1 % (0-2.5); Eosinophils # (Auto) 0.1 Thou/mm3 (0.0-0.5); Eosinophils % (Auto) 1 % (0-10); Hematocrit 30.3 % (36.0-46.0); Hemoglobin 10.7 g/dL (12.0-16.0); Immature Granulocytes Auto 0.03 Thou/mm3 (0.00-0.00); Lymphocytes # (Auto) 1.9 Thou/mm3 (1.0-4.8); Lymphocytes % (Auto) 30 % (10-50); Mean Corpuscular HGB Conc 35.3 g/dl (31.0-37.0); Mean Corpuscular Hemoglobin 30.3 pg (25.0-35.0); Mean Corpuscular Volume 86 fL (80-100); Monocytes # (Auto) 0.8 Thou/mm3 (0.0-0.8); Monocytes % (Auto) 12 % (0-12); Neutrophils # (Auto) 3.5 Thou/mm3 (1.8-7.7); Neutrophils % (Auto) 56 % (37-80); Nucleated Red Blood Cell # 0.00 Thou/mm3 (0.00-0.00); Nucleated Red Blood Cell % 0 /100 WBC (0); Platelet Count 140 Thou/mm3 (140-440); RDW Standard Deviation 37.0 fL (36.4-46.3); Red Blood Count 3.53 Miln/mm3 (4.00-5.20); White Blood Count 6.3 Thou/mm3 (3.6-11.0)
[2025-02-22 06:18] LABS: Alanine Aminotransferase 39 U/L (10-49); Albumin, Serum 3.2 gm/dL (3.5-5.0); Albumin/Globulin Ratio 1.3 (1.2-2.2); Alkaline Phosphatase 105 U/L (46-116); Anion Gap 9 (7-16); Aspartate Amino Transferase 23 U/L (0-34); BUN/Creatinine Ratio 13 Ratio (12-20); Bilirubin,Total 0.5 mg/dL (0.3-1.2); Blood Urea Nitrogen 10 mg/dL (9-23); Calcium 8.9 mg/dL (8.3-10.6); Calcium (Corrected) 9.5 mg/dL (8.5-10.1); Carbon Dioxide 26.1 mMol/L (20.0-31.0); Chloride 105 mMol/L (98-107); Creatinine (Component) 0.8 mg/dL (0.6-1.3); Estimated Creatinine Clearance 86.0 mL/min (>60); Globulin 2.4 gm/dL (2.3-3.5); Glucose 226 mg/dL (74-106); Magnesium 1.6 mg/dL (1.6-2.6); Osmolality,Calculated 285 (275-295); Phosphorous 1.8 mg/dL (2.4-5.1); Potassium 3.1 mMol/L (3.4-5.1); Sodium 140 mMol/L (136-145); Total Protein 5.6 gm/dL (5.7-8.2); eGFR > 60 See Note
[2025-02-22] MEDS: INSULIN LISPRO (AdmeLOG) 1 UNIT/0.01 ML UNIT SC ×4 (07:43→21:27)
[2025-02-22] MEDS: cefTRIAXone 2 GM in SODIUM CHLORIDE 0.9% (Popper) 50 ML IV (08:03)
[2025-02-22] MEDS: NAPH,KPH MBDB 1 PACKET (1.5 GM) PO (08:03)
[2025-02-22] MEDS: Magnesium Sulfate 4 GM Ivpb 4 GM/50 ML BAG IV (08:04)
[2025-02-22] MEDS: INSULIN DEGLUDEC 5 UNIT/0.05 ML (PER 5 UNITS) SC (08:32)
[2025-02-22] MEDS: SODIUM CHLORIDE 0.9% 1000 ML 1,000 ML 75 ML IV (08:32)
[2025-02-22] MEDS: IBUPROFEN TAB 400 MG TABLET PO (11:17)
--- NOTE | 2025-02-22 14:55 | PC.SS ---
SS follow up note; Patient is pending Blood cultures. Patient will discharge home when medically cleared.
--- NOTE | 2025-02-22 15:37 | ESPR_ITS ---
<Statement entered by Rachel Morelos MD - 02/23/25 07:28> Patient seen and examined at bedside. No acute overnight events reported. Patient has not had any fevers overnight. Patient is pending final blood culture speciation for final antibiotic. Dissipate discharge in 24 hours. I discussed with and supervised the international marketing manager physician who took care of this patient. I personally saw and examined the patient and discussed the assessment and plan with the entire medicine team, including my attending Dr. Dos Santos, I agree with most of the assessment and plan as documented below Rachel Morelos M.D. PGY-3 Disclaimer: Despite multiple revisions, due to the dictation software being used, the document bellow may not be free of grammatical errors including phonetic/typographic errors. However, this does not deter from our commitment to providing health care in the patient's best interest in mind. <Statement entered by Zuly Flores MD - 02/22/25 21:21> Note reviewed, I agree with most of its contents and agree with the patient's care as documented by Dr. Sky. Patient examined at bedside. No events overnight. No major complaints, symptoms have significantly improved. Leukocytosis resolving with downtrend to 10 today. Electrolytes repleted as needed. Continue IV ceftriaxone for treatment of GNR bacteremia 2/2 UTI. Final blood cultures are pending. ABDIAZIZ resolved with adequate fluids. Anticipate discharge next 24 hrs. The patient's management plan was discussed with my attending physician Dr. Dos Santos. Zuly Flores, PGY-2 Documentation for date of: 02/22/25 Subjective Subjective Interval history: 02/22/25: No acute events overnight. Vital signs have been stable. Patient remains afebrile. Patient was evaluated and examined at bedside. Patient denies any shortness of breath or chest pain or abdominal pain. Patient reported mild headache this morning, Ibuprofen was given with good relief of symptoms. Patient did not have any other complainst at this time. Exam Vital Signs Temp Pulse Resp BP Pulse Ox O2 Del Method 97.8 F 96 18 142/89 H 95 Room Air 02/22/25 12:00 02/22/25 12:00 02/22/25 12:02/22/25 12:00 02/22/25 12:02/22/25 12:00 Narrative Exam General: Alert, no acute distress.Conversational and non-toxic appearing. Skin: Warm, dry, intact. No rash or ecchymoses. Head: Normocephalic, atraumatic. Eye: Normal conjunctiva, anicteric sclerae Throat: Oral mucosa moist. Cardiovascular: Regular rate and rhythm, no murmur, +S1/S2. Respiratory: Lungs are clear to auscultation, respirations unlabored, no crackles, no wheezing. Gastrointestinal: Soft, nontender, non-distended. No guarding or rebound tenderness. Positive right sided CVA tenderness Extremities: No edema, no cyanosis, no clubbing. Neuro: Alert and oriented x3.No focal deficits observed. Conversant, moving all extremities. No overt cerebellar signs/incoordination. Psychiatric: Cooperative, appropriate affect Objective Labs 02/23/25 04:53 02/23/25 04:53 Labs: Laboratory Results - last 24 hr 02/22/25 04:55 WBC 6.3 RBC 3.53 L Hgb 10.7 L Hct 30.3 L MCV 86 MCH 30.3 MCHC 35.3 RDW Std Deviation 37.0 Plt Count 140 Neut % (Auto) 56 Lymph % (Auto) 30 Mckinley % (Auto) 12 Eos % (Auto) 1 Baso % (Auto) 1 Neut # (Auto) 3.5 Lymph # (Auto) 1.9 Mck[place]ley # (Auto) 0.8 Eos # (Auto) 0.1 Baso # (Auto) 0.0 Immature Gran # (Auto) 0.03 H Absolute Nucleated RBC 0.00 Immature Gran % 1 H Nucleated RBC % 0 Sodium 140 Potassium 3.1 L Chloride 105 Carbon Dioxide 26.1 Anion Gap 9 BUN 10 Creatinine 0.8 Estim Creat Clear Calc 86.0 eGFR > 60 BUN/Creatinine Ratio 13 Glucose 226 H Calculated Osmolality 285 Calcium 8.9 Corrected Calcium 9.5 Phosphorus 1.8 L Magnesium 1.6 Total Bilirubin 0.5 AST 23 ALT 39 Alkaline Phosphatase 105 Total Protein 5.6 L Albumin 3.2 L Globulin 2.4 Albumin/Globulin Ratio 1.3 Quality Measures Quality Measures none Assessment & Plan Assessment Current Active Medications: Generic Name Dose Route Start Last Admin Trade Name Freq PRN Reason Stop Dose Admin Acetaminophen 650 mg 02/20/25 19:45 Acetaminophen 325 Mg Tablet PO 03/22/25 19:44 Q6H PRN Fever >101.5 Acetaminophen 650 mg 02/20/25 19:45 02/22/25 05:00 Acetaminophen 325 Mg Tablet PO 03/22/25 19:44 650 mg Q6H PRN Administration PAIN SCALE 1-3 (mild Dextrose 25 ml 02/21/25 00:22 Dextrose 50%-Water Inj 50 Ml Syringe IV 03/23/25 00:21 Q15MIN PRN BG 50-70 responsive npo pt Dextrose 50 ml 02/21/25 00:22 Dextrose 50%-Water Inj 50 Ml Syringe IV 03/23/25 00:21 Q15MIN PRN BG <50 OR BG <70 & pt unresponsive Glucagon 1 mg 02/21/25 00:22 Glucagon Inj 1 Mg Vial IM Q15MIN PRN BG <70, and no IV access Heparin Sodium (Porcine) 5,000 unit 02/20/25 22:00 02/22/25 13:05 Heparin Sod Inj 5000 Unit/Ml Vial SC 03/06/25 21:59 5,000 unit Q8HR CALVIN Administration Ceftriaxone Sodium 2 gm/ 50 mls @ 100 mls/hr 02/21/25 11:04 02/22/25 08:03 Sodium Chloride IV 02/28/25 11:03 100 mls/hr QDAY CALVIN Administration Sodium Chloride 1,000 mls @ 75 mls/hr 02/22/25 08:05 02/22/25 08:32 Ns IV 03/24/25 08:04 75 mls/hr .[id number] CALVIN Administration Insulin Degludec 5 unit 02/22/25 09:00 02/22/25 08:32 Insulin Degludec 5 Unit/0.05 Ml (Per 5 Units) SC 03/24/25 08:59 5 unit QDAY CALVIN Administration Insulin Human Lispro 0 unit 02/21/25 07:30 02/22/25 11:17 Insulin Lispro (Admelog) 1 Unit/0.01 Ml Unit SC 03/23/25 07:29 1 unit ACHS CALVIN Administration Protocol Ondansetron HCl 4 mg 02/20/25 19:45 02/21/25 13:12 Ondansetron Inj 2 Mg/Ml Inj 2 Ml IVP 03/22/25 19:44 4 mg Q6H PRN Administration NAUSEA OR VOMITING Protocol Plan Ms Raymond is a 54 year old female with past medical history of type 2 diabetes mellitus (on Ozempic) and HLD presented to the ED on 02/20/2025 with chief complaint of fever, chills, nausea, vomiting and generalized malaise for the past 5 days. Admitted for sepsis 2/2 UTI and ABDIAZIZ management #Sepsis 2/2 right pyelonephritis vs (Resolved) #Urinary tract infection 2/2 Ecoli #Gram negative bacterimia Patient was tachycardic and febrile max T of 104.4 on admission, with hyperglycemia and elevated procalcitonin 1.71 which indicated a systemic inflammation. The UA was positive for leukocyte esterase, pyuria with WBC 67 consistent of UTI. No leukocytosis was noted. Also patient is had chills and (+)CVA tenderness suggestive of renal source of infection. lactic acid 1.6. End organ damaged evident by Abdiaziz of Cr 1.4. SIRS criteria 07/25: HR110, Temp 104.4. CT abd&pelvis shows perinephric stranding suspecting pyelonephritis on the right Blood culture positive for GNR Patient's tachycardia and fever have resolved. Urine cx positive for E. coli pansensitive to Abx Plan: - Continue IVF - Continue Rocephin 2g qday - Zofran for nausea - Acetaminophen 650 mg for fever and pain - Pending blood culture specification - Continue to monitor vitals #ABDIAZIZ, likely pre-renal (resolved) On admission Cr 1.4 (baseline 0.6), GFR 44. Likely secondary to dehydration due to poor oral intake. Cr improved to 0.9 Plan: - CTM -Avoid nephrotoxins -Monitor renal panel -Renally dosed medications # Non Insulin-dependent type 2 diabetes On admission glucose 277, A1c 6.4. Home medication Ozempic 2 mg. Plan: - Started Degludec 5 - Started insulin sliding scale - Bedside glucose check #Electrolyte abnormalities Patient was noted to have hypokalemia, hypomagnesimia and hypophosphatemia which were repleted. Most likely in the setting of low PO intake recently Plan: - CTM - Replete electrolyte as needed # Dyslipidemia Admission cholesterol 206, OIU228, triglyceride 139. Plan: -Continue to monitor -Consider starting atorvastatin 40mg Hospital management: Lines: peripheral IV Diet: carbs consistent diet DVT prophylaxis: Heparin SC Disposition: bacterimia, UTI, ABDIAZIZ management CODE STATUS: Full code Case was discussed with attending physician Dr. Dos Santos and senior resident Drs. Morelos and Mark. Robb Sky, DO PGY-1 Attending Provider Attestation/Addendum I have examined the patient, reviewed labs and imaging findings, discussed the case with the resident(s), and reviewed entered orders. I agree with the plan of care as outlined in this note, with these additional summaries/recommendations: Patient seen at bedside. No acute overnight events. Patient admitted for sepsis secondary to pyelonephritis +/- bacteremia. CT of abdomen and pelvis shows perinephric fat stranding and CVA tenderness present. Sepsis now resolved. Urine culture grew pansensitive E. coli. 2 of 2 blood cultures preliminarily growing GNR's and will await final speciation before patient can be safely discharged. ABDIAZIZ resolved. Mild hypokalemia and replacement given, follow-up repeat level. Continue insulin sliding scale with Accu-Cheks for diabetes mellitus type 2. Target blood sugar 140-180 while hospitalized. Patient reports she only takes Ozempic for her diabetes and has been on this medicine for 3 years. A1c 6.7%. Patient updated on the plan and in agreement. All questions answered to satisfaction. Please see residents note for additional details and management. Dr. Raya MD
[2025-02-22] MEDS: IBUPROFEN TAB 200 MG TABLET PO (19:34)
[2025-02-23] VITALS: BP 149/79; PULSE 92; RESP 20; TEMP 37.2; O2SAT 95
[2025-02-23] MEDS: SODIUM CHLORIDE 0.9% 1000 ML 1,000 ML 75 ML IV (00:09)
[2025-02-23 04:00] VITALS: BP 130/70; PULSE 92; RESP 18; TEMP 36.4; O2SAT 91
[2025-02-23] MEDS: HEPARIN SOD INJ 5000 UNIT/ML VIAL SC (05:10)
[2025-02-23] MEDS: ACETAMINOPHEN 325 MG TABLET 650 MG PO (05:13)
[2025-02-23 06:20] LABS: Basophils # (Auto) 0.1 Thou/mm3 (0.0-0.2); Basophils % (Auto) 1 % (0-2.5); Eosinophils # (Auto) 0.1 Thou/mm3 (0.0-0.5); Eosinophils % (Auto) 2 % (0-10); Hematocrit 31.4 % (36.0-46.0); Hemoglobin 11.0 g/dL (12.0-16.0); Immature Granulocytes Auto 0.09 Thou/mm3 (0.00-0.00); Lymphocytes # (Auto) 3.0 Thou/mm3 (1.0-4.8); Lymphocytes % (Auto) 39 % (10-50); Mean Corpuscular HGB Conc 35.0 g/dl (31.0-37.0); Mean Corpuscular Hemoglobin 30.1 pg (25.0-35.0); Mean Corpuscular Volume 86 fL (80-100); Monocytes # (Auto) 0.5 Thou/mm3 (0.0-0.8); Monocytes % (Auto) 7 % (0-12); Neutrophils # (Auto) 3.9 Thou/mm3 (1.8-7.7); Neutrophils % (Auto) 51 % (37-80); Nucleated Red Blood Cell # 0.00 Thou/mm3 (0.00-0.00); Nucleated Red Blood Cell % 0 /100 WBC (0); Platelet Count 170 Thou/mm3 (140-440); RDW Standard Deviation 37.0 fL (36.4-46.3); Red Blood Count 3.65 Miln/mm3 (4.00-5.20); White Blood Count 7.7 Thou/mm3 (3.6-11.0)
[2025-02-23 06:52] LABS: Alanine Aminotransferase 54 U/L (10-49); Albumin, Serum 3.3 gm/dL (3.5-5.0); Albumin/Globulin Ratio 1.2 (1.2-2.2); Alkaline Phosphatase 121 U/L (46-116); Anion Gap 12 (7-16); Aspartate Amino Transferase 52 U/L (0-34); BUN/Creatinine Ratio 11 Ratio (12-20); Bilirubin,Total 0.5 mg/dL (0.3-1.2); Blood Urea Nitrogen 8 mg/dL (9-23); Calcium 9.6 mg/dL (8.3-10.6); Calcium (Corrected) 10.2 mg/dL (8.5-10.1); Carbon Dioxide 27.4 mMol/L (20.0-31.0); Chloride 103 mMol/L (98-107); Creatinine (Component) 0.7 mg/dL (0.6-1.3); Estimated Creatinine Clearance 98.3 mL/min (>60); Globulin 2.7 gm/dL (2.3-3.5); Glucose 155 mg/dL (74-106); Magnesium 1.4 mg/dL (1.6-2.6); Osmolality,Calculated 284 (275-295); Phosphorous 2.5 mg/dL (2.4-5.1); Potassium 3.6 mMol/L (3.4-5.1); Sodium 142 mMol/L (136-145); Total Protein 6.0 gm/dL (5.7-8.2); eGFR > 60 See Note
[2025-02-23] MEDS: INSULIN LISPRO (AdmeLOG) 1 UNIT/0.01 ML UNIT SC ×2 (07:50→12:02)
[2025-02-23] MEDS: IBUPROFEN TAB 400 MG TABLET PO (07:51)
[2025-02-23] MEDS: Magnesium Sulfate 4 GM Ivpb 4 GM/50 ML BAG IV (07:51)
[2025-02-23 08:00] VITALS: BP 141/81; PULSE 87; RESP 18; TEMP 36.2; O2SAT 98
[2025-02-23 08:10] VITALS: PULSE 99; RESP 18; RESP 96
[2025-02-23] MEDS: INSULIN DEGLUDEC 5 UNIT/0.05 ML (PER 5 UNITS) SC (08:17)
[2025-02-23] MEDS: cefTRIAXone 2 GM in SODIUM CHLORIDE 0.9% (Popper) 50 ML IV (08:19)
--- NOTE | 2025-02-23 08:38 | ESDS_ITS ---
<Statement entered by Rachel Morelos MD - 02/23/25 13:33> I discussed with and supervised the international organizer physician who took care of this patient. I personally saw and examined the patient and discussed the assessment and plan with the entire medicine team, including my attending Dr. Dos Santos, I agree with most of the assessment and plan as documented below Rachel Morelos M.D. PGY-3 Disclaimer: Despite multiple revisions, due to the dictation software being used, the document bellow may not be free of grammatical errors including phonetic/typographic errors. However, this does not deter from our commitment to providing health care in the patient's best interest in mind. Planned Discharge Date 02/23/25 DS: Providers Provider Date of admission: 02/20/25 19:45 Primary care physician: Leticia Logan MD Admitting Provider: Jose L No MD Attending Provider on Admission: Ulysses Dos Santos MD Attending Provider on DC: Dr. Dos Santos Discharging Provider: Resident Sudhir Anticipated date of discharge: 02/23/25 DS: Diagnosis Problem List Completed Was Problem List Reviewed/Reconciled?: Yes Hospital Course Hospital Course Hospital course: Ms Raymond is a 54 year old female with past medical history of type 2 diabetes mellitus (on Ozempic) and HLD presented to the ED on 02/20/2025 with chief complaint of fever, chills, nausea, vomiting and generalized malaise for the past 5 days. Admitted for sepsis 2/2 UTI and ABDIAZIZ management. Patient was tachycardic and febrile max T of 104.4 on admission, with hyperglycemia and elevated procalcitonin 1.71 which indicated a systemic inflammation. The UA was positive for leukocyte esterase, pyuria with WBC 67 consistent of UTI. No leukocytosis was noted. Also patient is had chills and (+)CVA tenderness suggestive of renal source of infection. lactic acid 1.6. End organ damaged evident by Abdiaziz of Cr 1.4. Patient met the SIRS criteria 2/4 for tachycardia and being febrile. CT abd&pelvis shows perinephric stranding suspecting pyelonephritis on the right. Blood culture and urine cultures positive for GNR positive for Ecoli pansensitive to antibiotics. Upon starting patient on rocephin antibiotics, her vital signs improved and she remained afebrile with resolved leukocytosis. Patient's ABDIAZIZ also resolved upon IVF hydration to 0.9 which is patient's baseline. Her ABDIAZIZ was most likely secondary to dehydration d ue to poor oral intake. Patient's all other medical problems were managed during her hospitalization. Patient remained hemodynamically stable with vital signs within normal limits. Patient is in stable condition for discharge. She will be prescribed with oral course of Cipro antibiotics for another 11 days for her UTI and bacterimia. Overall, patient's condition has improved and all questions answered. ED return precautions given. #Sepsis 2/2 right pyelonephritis vs (Resolved) #E.coli Urinary tract infection #E.coli bacterimia #ABDIAZIZ, likely pre-renal (resolved) #Non Insulin-dependent type 2 diabetes #Electrolyte abnormalities # Dyslipidemia Please take your new medication Ciprofloxacin 750mg twice daily for a total of 11 days. Please take your other home medications as prescribed. Please return to the ED if your symptoms worsen. Case was discussed with attending physician Dr. Dos Santos and senior resident Drs. Morelos and Mark. Robb Sky DO PGY-1 Status at Discharge Functional status at discharge: independent ambulation Overall status at discharge: patient is back to baseline Time Spent with Patient Time attestation: Total time spent providing and/or coordinating discharge services: Time spent: Greater than 30 minutes Exam Vital Signs Temp Pulse Resp BP Pulse Ox O2 Del Method O2 Flow Rate 97.1 F 99 18 141/81 H 98 Room Air 2 02/23/25 08:00 02/23/25 08:10 02/23/25 08:10 02/23/25 08:00 02/23/25 08:00 02/23/25 08:00 02/23/25 04:00 Narrative Exam General: Alert, no acute distress.Conversational and non-toxic appearing. Skin: Warm, dry, intact. No rash or ecchymoses. Head: Normocephalic, atraumatic. Eye: Normal conjunctiva, anicteric sclerae Throat: Oral mucosa moist. Cardiovascular: Regular rate and rhythm, no murmur, +S1/S2. Respiratory: Lungs are clear to auscultation, respirations unlabored, no crackles, no wheezing. Gastrointestinal: Soft, nontender, non-distended. No guarding or rebound tenderness. Extremities: No edema, no cyanosis, no clubbing. Neuro: Alert and oriented x3.No focal deficits observed. Conversant, moving all extremities. No overt cerebellar signs/incoordination. Psychiatric: Cooperative, appropriate affect Discharge Plan Plan Patient Disposition: HOME (Self Care) Prescriptions/Referrals Prescriptions/Med Rec: New acetaminophen 325 mg capsule 650 mg PO QID PRN (Reason: fever or pain) 7 Days Qty: 30 0RF ondansetron 4 mg tablet,disintegrating 4 mg PO Q8H PRN (Reason: nausea and vomiting) Qty: 14 0RF ciprofloxacin HCl 750 mg tablet 750 mg PO BID 11 Days Qty: 22 0RF Continued Ozempic 2 mg/dose (8 mg/3 mL) pen injector 2 mg SUBCUT QWEEK Patient Comments: INJECT 2 MG SUBCUTANEOUSLY EVERY WEEK SUBCUTANEOUS WEEKLY 90 DAYS Referrals: Leticia Logan MD [Primary Care Provider, Family Practice] Patient/Caregiver Discharge Instructions Other Discharge Diet Instructions: Please take your new medication Ciprofloxacin 750mg twice daily for a total of 11 days. Please take your other home medications as prescribed. Please return to the ED if your symptoms worsen. Education Materials: Anatomy of the Female Urinary Tract, ED Bacteremia, Suspected (Adult) Print Language: Bahamian Stand Alone Forms: [facility] Award Info., Patient Portal Info Letter Discharge Order Discharge Orders: Discharge (Routine); Ordered 02/23/25 Ordered By: Rachel Morelos Quality Discharge Quality Measures VTE prophylaxis Attestestation MD Attestation I have examined the patient, reviewed labs and imaging findings, discussed the case with the resident(s), and reviewed entered orders. I agree with the plan of care as outlined in this note. Time Spent: [address] Raya MD
[2025-02-23] MEDS: POLYETHYLENE GLYCOL 17 GM PACKET PO (09:11)
[2025-02-23 12:00] VITALS: BP 144/69; PULSE 87; RESP 18; TEMP 36.2; O2SAT 98
--- NOTE | 2025-02-23 13:37 | PC.NURSE ---
Discharge needs net, patient left with family in stable condition, with all belongings.
== END 2025-02-23 13:37 | disposition home or self-care (01) | DRG 872 ==
LOC: SERX 19:44 → SERHOLD 20:16 → S3NX 21:40
PROVIDERS: Nurse Practitioner Family; Admitting Provider Student in an Organized Health Care Education/Training Program; Emergency Provider Emergency Medicine; PCP Family Medicine; Visit Provider Student in an Organized Health Care Education/Training Program
DX: A41.51 Sepsis due to Escherichia coli [E. coli] (principal); N39.0 Urinary tract infection, site not specified; N17.9 Acute kidney failure, unspecified; N10 Acute pyelonephritis; E78.5 Hyperlipidemia, unspecified; E86.0 Dehydration; E87.6 Hypokalemia; Z88.1 Allergy status to other antibiotic agents; E11.65 Type 2 diabetes mellitus with hyperglycemia; E83.39 Other disorders of phosphorus metabolism; Z79.4 Long term (current) use of insulin
CPT/HCPCS: 36415; 71046; 74176; 80053; 80307; 81001; 83036; 83605; 83735; 83880; 84100; 84145; 84484; 85025; 85610; 85730; 87040; 87077; 87086; 87186; 87400; 87811; 93005; 96361; 96365; 96375; 96376; 99284; J0131; J0692; J0696; J1644; J1815; J1885; J2405; J2765; J3475; J7030; J7050; J7120; Q0162; A9270